=== PATIENT | male | born 1980 | race Caucasian/White ===

== ENCOUNTER 2020-04-12 21:04 | Emergency (ER) | payer BC ==
[~2020-04-12] VITALS: Ht 188 cm; Wt 105.6 kg
[~2020-04-12 21:04] MED LIST: FAMO-1 PO; IBUP-1986 PO; NAPR-56 PO; NO HOME MEDS; RANI-648 PO
[2020-04-12] MEDS ORDERED: mag hydrox/Alum hydrox/simeth 30ml oral suspension PO ONE (22:30)
[2020-04-12] MEDS ORDERED: LIDOcaine Viscous 15ml cup MM ONE (22:30)
[2020-04-12] MEDS ORDERED: pantoprazole 40mg Tablet.DR PO SCH (22:37)
[2020-04-12 22:56] VITALS: BP 128/78
== END 2020-04-12 22:58 | disposition home or self-care (01) ==
LOC: ER 21:04
DX: R06.02 Shortness of breath (principal); I48.91 Unspecified atrial fibrillation; K21.9 Gastro-esophageal reflux disease without esophagitis; F41.9 Anxiety disorder, unspecified; Z79.899 Other long term (current) drug therapy
CPT/HCPCS: 93005; 99284